=== PATIENT | male | born 1950 | race Caucasian/White ===

== ENCOUNTER 2018-05-14 05:42 | Inpatient (IN) | payer MEDICARE, BC ==
[2018-05-14] MEDS: LACTATED RINGER'S 1,000 ML IV* (06:33)
[2018-05-14] MEDS: CEFAZOLIN 2 GM/50 ML (PMX) 50 ML IVPB (06:33)
[2018-05-14] MEDS: POLYMYXIN/BACITRACIN 1L IRRIG (06:50)
[2018-05-14] MEDS: BUPIVACAINE 0.25% (MPF) 30 ML INJ (06:50)
[2018-05-14] MEDS ORDERED: GELATIN SIZE 100 SPONGE (06:50)
[2018-05-14] MEDS ORDERED: THROMBIN 5000 UNIT VIAL (06:50)
[2018-05-14] MEDS ORDERED: FENTAnyl 50 MCG/ML VIAL ×3 (06:56→07:52)
[2018-05-14] MEDS ORDERED: PROPOFOL 20 ML (06:56)
[2018-05-14] MEDS ORDERED: MIDAZOLAM 1 MG/ML 2 ML INJ (06:56)
[2018-05-14] MEDS ORDERED: LIDOCAINE 2% (SDV) 5 ML INJ (06:58)
[2018-05-14] MEDS ORDERED: ONDANSETRON 4 MG INJ (06:58)
[2018-05-14] MEDS ORDERED: ROCURONIUM 50 MG INJ (06:58)
[2018-05-14] MEDS ORDERED: SUCCINYLCHOLINE CHLORIDE 100 MG/5 ML SYG IV (06:58)
[2018-05-14] MEDS ORDERED: DEXAMETHASONE 4 MG/ML 1 ML INJ (07:00)
[2018-05-14] MEDS ORDERED: METOCLOPRAMIDE 10 MG INJ (07:00)
[2018-05-14] MEDS ORDERED: LACTATED RINGER'S 1,000 ML IV (07:30)
[2018-05-14] MEDS ORDERED: ACETAMINOPHEN 1000MG/100ML IV 100 ML (07:52)
[2018-05-14] MEDS ORDERED: LABETALOL HCL 20MG INJ (07:52)
[2018-05-14] MEDS ORDERED: hydrALAzine 20 MG INJ IV (09:30)
[2018-05-14] MEDS ORDERED: LABETALOL HCL 20MG INJ IV (09:30)
[2018-05-14] MEDS ORDERED: FENTAnyl 50 MCG/ML VIAL IV ×2 (09:30)
[2018-05-14] MEDS ORDERED: HYDROmorphONE 1 MG/5 ML IV SYRINGE IV ×3 (09:30)
[2018-05-14] MEDS ORDERED: ONDANSETRON 4 MG INJ IV ×2 (09:30→10:00)
[2018-05-14] MEDS ORDERED: IPRATROPIUM (NEB) 0.5 MG/2.5 ML AMP HHN (09:30)
[2018-05-14] MEDS ORDERED: MEPERIDINE 25 MG INJ IV (09:30)
[2018-05-14] MEDS ORDERED: DIPHENHYDRAMINE 50 MG INJ IV (09:30)
[2018-05-14] MEDS ORDERED: DIAZEPAM 5 MG/ML SYG IM (10:00)
[2018-05-14] MEDS ORDERED: AL HYDROX/MG HYDROX/SIMETH 30 ML CUP PO (10:00)
[2018-05-14] MEDS ORDERED: BETHANECHOL 25 MG TAB PO (10:00)
[2018-05-14] MEDS ORDERED: PROCHLORPERAZINE 10 MG TAB PO (10:00)
[2018-05-14] MEDS ORDERED: DIPHENHYDRAMINE 50 MG CAP PO (10:00)
[2018-05-14] MEDS ORDERED: DIAZEPAM 5 MG TAB PO (10:00)
[2018-05-14] MEDS ORDERED: CEPASTAT LOZENGE MT (10:00)
[2018-05-14] MEDS ORDERED: NALOXONE (0.4 MG/ML) INJ IV (10:00)
[2018-05-14] MEDS ORDERED: NACL 0.9% 3 ML SYG IV (10:00)
[2018-05-14] MEDS ORDERED: ACETAMINOPHEN 325 MG TAB PO (10:00)
[2018-05-14] MEDS ORDERED: ZOLPIDEM 5 MG TAB PO (10:00)
[2018-05-14] MEDS ORDERED: TRIMETHOBENZAMIDE 100 MG/ML VIAL IM (10:00)
[2018-05-14] MEDS ORDERED: HYDROCODONE/APAP (5/325) TAB PO (10:00)
[2018-05-14] MEDS ORDERED: HYDROmorphONE 0.2 MG/ML PCA (10:08)
[2018-05-14] MEDS: HYDROmorphONE 0.2 MG/ML PCA IV (10:22)
[2018-05-14] MEDS: DEXTROSE 5%-0.45% NACL 1,000 ML IV ×2 (12:29→19:49)
[2018-05-14] MEDS: CEFAZOLIN 1 GM/50 ML (PMX) 50 ML IVPB ×3 (12:29→23:31)
[2018-05-14] MEDS: RANITIDINE 150 MG TAB PO (20:51)
[2018-05-15] MEDS: DEXTROSE 5%-0.45% NACL 1,000 ML IV ×2 (01:17→05:34)
[2018-05-15 05:29] LABS: HEMATOCRIT 35.9 % (42.0-52.0); HEMOGLOBIN 12.4 g/dl (14.0-18.0)
[2018-05-15] MEDS: CEFAZOLIN 1 GM/50 ML (PMX) 50 ML IVPB (05:33)
[2018-05-15 06:08] LABS: ANION GAP 11 (8-16); BLOOD UREA NITROGEN 10 mg/dl (7-20); CALCIUM 8.9 mg/dl (8.4-10.2); CARBON DIOXIDE 26 mmol/L (21-31); CHLORIDE 107 mmol/L (97-110); CREATININE 0.68 mg/dl (0.61-1.24); GLUCOSE 102 mg/dl (70-220); POTASSIUM 4.1 mmol/L (3.5-5.1); SODIUM 140 mmol/L (135-144)
[2018-05-15] MEDS ORDERED: BETHANECHOL 25 MG TAB PO (08:00)
[2018-05-15] MEDS: FERROUS SULFATE (EC) 325 MG TAB PO ×2 (09:00→12:43)
[2018-05-15] MEDS: HYDROCODONE/APAP (5/325) TAB PO (09:08)
[2018-05-15] MEDS: DOCUSATE SODIUM 100 MG CAP PO (09:08)
[2018-05-15] MEDS: RANITIDINE 150 MG TAB PO (09:09)
[2018-05-15] MEDS: ASCORBIC ACID 500 MG TAB PO (09:09)
== END 2018-05-15 15:35 | disposition home or self-care (01) | DRG 517 ==
LOC: REC 05:42 → MS1 11:25
PROC: 01NB0ZZ Release Lumbar Nerve, Open Approach (ICD-10-PCS; principal; 2018-05-14 07:00)
DX: M48.07 Spinal stenosis, lumbosacral region (principal); G62.9 Polyneuropathy, unspecified; M21.371 Foot drop, right foot
CPT/HCPCS: 72020; 80048; 85014; 85018; 86850; 86900; 86901; 86920; 87086; 97110; 97116; 97161; 97530